=== PATIENT | female | born 1975 | race Two or more races ===

== ENCOUNTER 2020-09-21 06:37 | Inpatient (IN) | payer MEDICAID, OTHER ==
[~2020-09-21] VITALS: Ht 157.5 cm; Wt 80.0 kg
[~2020-09-21 06:37] MED LIST: ASPI300S4 PO; GLIP10TA9 PO; LEV50T PO; LOSA-39 PO; METF-370 PO; NIAC250C16 PO; PRAV20TA3 PO; VERA1TAB24 PO
[2020-09-21] MEDS ORDERED: amLODIPine BESYLATE 5 MG TAB PO ONE (07:00)
[2020-09-21 07:17] LABS: Basophils # (auto) 0.1 10 ^3/uL (0-0.2); Basophils % (auto) 1.5 % (0.0-2.0); Eosinophils # (auto) 0.2 10 ^3/uL (0-0.8); Hematocrit 45.4 % (36.0-46.0); Hemoglobin 15.8 g/dL (12.2-16.2); Lymphocytes # (auto) 2.4 10 ^3/uL (0.4-5.4); Lymphocytes % (auto) 43.1 % (10.0-50.0); Mean Corpuscular Hemoglobin 29.6 pg (28.0-32.0); Mean Corpuscular Hgb Conc. 34.7 g/dL (32.0-36.0); Mean Corpuscular Volume 85.3 fL (80.0-100.0); Monocytes # (auto) 0.3 10 ^3/uL (0-1.3); Monocytes % (auto) 6.1 % (0.0-12.0); Neutrophils # (auto) 2.5 10 ^3/uL (1.6-8.6); Neutrophils % (auto) 45.3 % (37.0-80.0); Nucleated Red Blood Cells % 0.2 %; Red Blood Cells 5.32 10^6/uL (4.0-5.20); Red Cell Distribution Width 13.5 % (11.8-14.3); White Blood Cell 5.6 10^3/uL (4.4-10.8)
[2020-09-21 07:33] LABS: BUN/Creatinine Ratio 28.8; Potassium 3.5 mmol/L (3.5-5.1)
[2020-09-21 07:34] LABS: INR 0.99 (0.9-1.15); Partial Thromboplastin Time 27.5 sec (23.0-31.2)
[2020-09-21 07:38] LABS: Bilirubin, Total 0.5 mg/dL (0.2-1.0); Total Protein 7.3 g/dL (6.4-8.2)
[2020-09-21 07:59] LABS: Urine Bacteria NONE SEEN /hpf (None Seen); Urine Blood Negative /uL (Negative); Urine WBC 1 /hpf (0 - 5)
[2020-09-21] MEDS ORDERED: NITROGLYCERIN 0.4 MG SL TAB SL PRN (08:45)
[2020-09-21] MEDS ORDERED: MORPHINE SULFATE INJECTION 2 MG/ML SYRG IV PRN ×2 (08:45)
[2020-09-21] MEDS ORDERED: DEXTROSE (50%) 50ML SYRG IV PRN (08:45)
[2020-09-21] MEDS ORDERED: PROMETHAZINE HCL 25 MG/ML 1ML IV PRN (08:45)
[2020-09-21] MEDS ORDERED: LACTULOSE 20Gm/30ML SOLN PO PRN (08:45)
[2020-09-21] MEDS ORDERED: ACETAMINOPHEN 500 MG TAB PO PRN (08:45)
[2020-09-21] MEDS: NITROGLYCERIN 0.2MG/HR TOPICAL PATCH TD SCH (09:33)
[2020-09-21] MEDS: ENOXAPARIN SOD 80 MG/0.8ML SYRINGE SC SCH ×2 (09:33→21:59)
[2020-09-21] MEDS: ASPirin 81 mg TAB PO SCH (09:34)
[2020-09-21] MEDS: SODIUM CHLORIDE 0.9% 1,000 ML IV SCH ×2 (09:34→23:14)
[2020-09-21] MEDS: InsuLIN REG 1unit/0.01ml Soln (100units/ml) SC SCH ×3 (11:30→21:52)
[2020-09-21] MEDS: ACCU-CHEK COMFORT CURVE STRIP VI SCH ×3 (11:47→21:52)
[2020-09-21] MEDS: ATORVASTATIN 20 MG TAB PO SCH (21:59)
[2020-09-21] MEDS: traMADol HCL 50 MG TAB PO PRN (23:17)
[2020-09-22 03:50] LABS: Basophils # (auto) 0 10 ^3/uL (0-0.2); Basophils % (auto) 0.9 % (0.0-2.0); Eosinophils # (auto) 0.2 10 ^3/uL (0-0.8); Hemoglobin 14.2 g/dL (12.2-16.2); Lymphocytes # (auto) 2.2 10 ^3/uL (0.4-5.4); Lymphocytes % (auto) 40.2 % (10.0-50.0); Mean Corpuscular Hemoglobin 29.2 pg (28.0-32.0); Mean Corpuscular Hgb Conc. 33.8 g/dL (32.0-36.0); Mean Corpuscular Volume 86.3 fL (80.0-100.0); Monocytes # (auto) 0.3 10 ^3/uL (0-1.3); Neutrophils # (auto) 2.7 10 ^3/uL (1.6-8.6); Neutrophils % (auto) 48.9 % (37.0-80.0); Nucleated Red Blood Cells % 0.1 %; Red Blood Cells 4.86 10^6/uL (4.0-5.20); Red Cell Distribution Width 13.4 % (11.8-14.3); White Blood Cell 5.6 10^3/uL (4.4-10.8)
[2020-09-22 04:06] LABS: Potassium 3.6 mmol/L (3.5-5.1)
[2020-09-22 04:16] LABS: Albumin 3.5 g/dL (3.4-5.0); BUN/Creatinine Ratio 26.8; Bilirubin, Total 0.4 mg/dL (0.2-1.0); Calcium 9.1 mg/dL (8.5-10.1); Total Protein 6.4 g/dL (6.4-8.2)
[2020-09-22] MEDS: ACCU-CHEK COMFORT CURVE STRIP VI SCH ×4 (06:27→23:00)
[2020-09-22] MEDS: InsuLIN REG 1unit/0.01ml Soln (100units/ml) SC SCH ×4 (06:27→23:00)
[2020-09-22] MEDS: ASPirin 81 mg TAB PO SCH (10:20)
[2020-09-22] MEDS: ENOXAPARIN SOD 80 MG/0.8ML SYRINGE SC SCH (10:21)
[2020-09-22] MEDS: NITROGLYCERIN 0.2MG/HR TOPICAL PATCH TD SCH (10:24)
[2020-09-22] MEDS: SODIUM CHLORIDE 0.9% 1,000 ML IV SCH (11:32)
[2020-09-22 12:11] LABS: Alcohol, Urine < 3.0 mg/dL (0-10); Amphetamine Screen, Urine NEGATIVE (NEGATIVE); Barbiturate Scree,Urine NEGATIVE (NEGATIVE); Benzodiazephine Screen, Urine NEGATIVE (NEGATIVE); Cannabinoid Screen, Urine NEGATIVE (NEGATIVE); Cocaine Screen, Urine NEGATIVE (NEGATIVE); Opiate Scree,Urine NEGATIVE (NEGATIVE); Phencyclidine Screen, Urine NEGATIVE (NEGATIVE)
[2020-09-22] MEDS: ATORVASTATIN 20 MG TAB PO SCH (23:00)
[2020-09-22] MEDS: traMADol HCL 50 MG TAB PO PRN (23:01)
[2020-09-23] VITALS (16 sets, daily range): BP systolic 115–182; BP diastolic 75–107
[2020-09-23 05:38] LABS: Basophils # (auto) 0 10 ^3/uL (0-0.2); Basophils % (auto) 0.9 % (0.0-2.0); Eosinophils # (auto) 0.2 10 ^3/uL (0-0.8); Eosinophils % (auto) 3.6 % (0.0-7.0); Hematocrit 40.1 % (36.0-46.0); Hemoglobin 14.1 g/dL (12.2-16.2); Lymphocytes # (auto) 1.9 10 ^3/uL (0.4-5.4); Lymphocytes % (auto) 36.2 % (10.0-50.0); Mean Corpuscular Hemoglobin 30.2 pg (28.0-32.0); Mean Corpuscular Hgb Conc. 35.2 g/dL (32.0-36.0); Mean Corpuscular Volume 85.8 fL (80.0-100.0); Monocytes # (auto) 0.3 10 ^3/uL (0-1.3); Monocytes % (auto) 6.1 % (0.0-12.0); Neutrophils # (auto) 2.8 10 ^3/uL (1.6-8.6); Neutrophils % (auto) 53.2 % (37.0-80.0); Nucleated Red Blood Cells % 0.2 %; Red Blood Cells 4.67 10^6/uL (4.0-5.20); Red Cell Distribution Width 13.3 % (11.8-14.3); White Blood Cell 5.4 10^3/uL (4.4-10.8)
[2020-09-23 05:51] LABS: Potassium 3.7 mmol/L (3.5-5.1)
[2020-09-23 05:59] LABS: BUN/Creatinine Ratio 29.2; Calcium 8.7 mg/dL (8.5-10.1)
[2020-09-23] MEDS: InsuLIN REG 1unit/0.01ml Soln (100units/ml) SC SCH ×4 (06:31→21:32)
[2020-09-23] MEDS: ACCU-CHEK COMFORT CURVE STRIP VI SCH ×4 (06:32→21:32)
[2020-09-23] MEDS ORDERED: TOLT1TAB14 OR (07:20)
[2020-09-23] MEDS ORDERED: HYDR-4902 PO (07:23)
[2020-09-23] MEDS: ENOXAPARIN SOD 40 MG/0.4 ML SYRINGE SC SCH (08:40)
[2020-09-23] MEDS: ASPirin 81 mg TAB PO SCH (08:40)
[2020-09-23] MEDS: NITROGLYCERIN 0.2MG/HR TOPICAL PATCH TD SCH (08:42)
[2020-09-23] MEDS ORDERED: IOHEXOL 300 MG/ML 100ML BOTTLE IJ ONE (17:19)
[2020-09-23] MEDS: traMADol HCL 50 MG TAB PO PRN (21:32)
[2020-09-23] MEDS: ATORVASTATIN 20 MG TAB PO SCH (21:32)
[2020-09-24 05:00] VITALS: BP 142/82
[2020-09-24] MEDS: ACCU-CHEK COMFORT CURVE STRIP VI SCH ×2 (06:17→11:50)
[2020-09-24] MEDS: InsuLIN REG 1unit/0.01ml Soln (100units/ml) SC SCH ×2 (06:17→11:30)
[2020-09-24 09:00] VITALS: BP 138/95
[2020-09-24] MEDS: ENOXAPARIN SOD 40 MG/0.4 ML SYRINGE SC SCH (10:05)
[2020-09-24] MEDS: NITROGLYCERIN 0.2MG/HR TOPICAL PATCH TD SCH (10:07)
[2020-09-24] MEDS: ASPirin 81 mg TAB PO SCH (10:08)
[2020-09-24] MEDS ORDERED: LOSARTAN POTASSIUM 25 MG TAB PO ONE (11:00)
[2020-09-24 12:59] VITALS: BP 138/95
== END 2020-09-24 13:38 | disposition home or self-care (01) | DRG 199 ==
LOC: ER 06:37 → TELE 06:38 → DOU IN ICU 09-23 01:09 → TELE-CENTR 09-23 15:21
PROVIDERS: ADMIT Internal Medicine; ATTEND Internal Medicine Pulmonary Disease
DX: I16.1 Hypertensive emergency (principal); E66.01 Morbid (severe) obesity due to excess calories; I42.2 Other hypertrophic cardiomyopathy; Z20.822 Contact with and (suspected) exposure to COVID-19; R00.1 Bradycardia, unspecified; E11.9 Type 2 diabetes mellitus without complications; G47.30 Sleep apnea, unspecified; E03.9 Hypothyroidism, unspecified; H93.19 Tinnitus, unspecified ear; E78.5 Hyperlipidemia, unspecified; I25.10 Atherosclerotic heart disease of native coronary artery without angina pectoris; I10 Essential (primary) hypertension; F32.9 Major depressive disorder, single episode, unspecified; F41.9 Anxiety disorder, unspecified; Z68.32 Body mass index [BMI] 32.0-32.9, adult; Z82.49 Family history of ischemic heart disease and other diseases of the circulatory system; Z83.3 Family history of diabetes mellitus; Z85.42 Personal history of malignant neoplasm of other parts of uterus; Z90.710 Acquired absence of both cervix and uterus; Z98.84 Bariatric surgery status; Z23 Encounter for immunization
CPT/HCPCS: 36415; 70450; 70470; 71045; 80048; 80053; 80061; 80307; 81001; 82550; 82962; 83036; 83880; 84443; 84484; 85025; 85379; 85610; 85652; 85730; 86141; 87081; 87426; 93005; 93306; 93886; 99291; G0378; J1815

== ENCOUNTER 2022-09-03 10:00 | Emergency (ER) | payer MEDICAID ==
[~2022-09-03] VITALS: Ht 154.9 cm; Wt 89.0 kg
[~2022-09-03 10:00] MED LIST changes: -ASPI300S4 PO; -GLIP10TA9 PO; +HYDR-4902 PO; -LEV50T PO; -METF-370 PO; -NIAC250C16 PO; -PRAV20TA3 PO; -VERA1TAB24 PO
[2022-09-03 10:23] VITALS: BP 124/85
[2022-09-03] MEDS ORDERED: ACETAMINOPHEN 500 MG TAB PO ONE (12:15)
[2022-09-03] MEDS ORDERED: HYDR-4902 PO (13:23)
== END 2022-09-03 13:24 | disposition home or self-care (01) ==
LOC: ER 10:00
DX: S92.331A Displaced fracture of third metatarsal bone, right foot, initial encounter for closed fracture (principal); S92.341A Displaced fracture of fourth metatarsal bone, right foot, initial encounter for closed fracture; S93.602A Unspecified sprain of left foot, initial encounter; I10 Essential (primary) hypertension; I25.10 Atherosclerotic heart disease of native coronary artery without angina pectoris; E11.9 Type 2 diabetes mellitus without complications; E78.5 Hyperlipidemia, unspecified; E03.9 Hypothyroidism, unspecified; Z90.710 Acquired absence of both cervix and uterus; Z79.899 Other long term (current) drug therapy; W10.9XXA Fall (on) (from) unspecified stairs and steps, initial encounter; Y93.89 Activity, other specified; Y92.89 Other specified places as the place of occurrence of the external cause; Y99.8 Other external cause status
CPT/HCPCS: 29515; 73630

== ENCOUNTER 2023-08-28 11:29 | Inpatient (IN) | payer MEDICAID ==
[~2023-08-28] VITALS: Ht 157.5 cm; Wt 86.3 kg
[~2023-08-28 11:29] MED LIST changes: -LOSA-39 PO; +LOSA100T58 PO
[2023-08-28 12:01] LABS: Basophils # (auto) 0.1 10 ^3/uL (0-0.2); Basophils % (auto) 0.8 % (0.0-2.0); Eosinophils # (auto) 0.1 10 ^3/uL (0-0.8); Eosinophils % (auto) 1.4 % (0.0-7.0); Hematocrit 43.8 % (36.0-46.0); Hemoglobin 14.6 g/dL (12.2-16.2); Lymphocytes % (auto) 20.1 % (10.0-50.0); Mean Corpuscular Hemoglobin 28.9 pg (28.0-32.0); Mean Corpuscular Hgb Conc. 33.3 g/dL (32.0-36.0); Monocytes # (auto) 0.6 10 ^3/uL (0-1.3); Monocytes % (auto) 6.4 % (0.0-12.0); Neutrophils # (auto) 7.1 10 ^3/uL (1.6-8.6); Neutrophils % (auto) 71.3 % (37.0-80.0); Nucleated Red Blood Cells % 0.2 %; Red Blood Cells 5.04 10^6/uL (4.0-5.20); Red Cell Distribution Width 13.8 % (11.8-14.3)
[2023-08-28 12:16] LABS: INR 0.95 (0.9-1.15); Partial Thromboplastin Time 30.4 SEC (24.5-34.5)
[2023-08-28 12:23] VITALS: PULSE 177; RESP 20; O2SAT 97
[2023-08-28 12:23] LABS: Alanine Aminotransferase 17 U/L (7-40); Albumin 4.3 g/dL (3.2-4.8); Alkaline Phosphatase 108 U/L (46-116); Anion Gap 6 (5-15); Aspartate Aminotransferase 14 U/L (13-40); BUN/Creatinine Ratio 15.8 (10.0-20.0); Bilirubin, Total 0.4 mg/dL (0.2-1.0); Blood Urea Nitrogen 12 mg/dL (9-23); Calcium 9.1 mg/dL (8.7-10.4); Carbon Dioxide 28 mmol/L (20-30); Chloride 105 mmol/L (98-107); Glucose 139 mg/dL (74-106); Magnesium 1.8 mg/dL (1.6-2.6); Potassium 4.2 mmol/L (3.5-5.1); Sodium 139 mmol/L (136-145); Total Protein 6.5 g/dL (5.7-8.2)
[2023-08-28] MEDS: SODIUM CHLORIDE 0.9% 500 ML IV ONE (12:31)
[2023-08-28] MEDS: dilTIAZem 25 MG/5 ML VIAL IV ONE ×2 (12:31→12:38)
[2023-08-28] MEDS: ASPirin 325 MG TAB PO ONE (12:33)
[2023-08-28] MEDS ORDERED: ACETAMINOPHEN 325 MG TAB PO PRN (13:30)
[2023-08-28] MEDS ORDERED: MORPHINE SULFATE INJ 2 MG/ml SYRG IV PRN (13:30)
[2023-08-28] MEDS ORDERED: NITROGLYCERIN 0.4 MG SL TAB SL PRN (13:30)
[2023-08-28] MEDS: dilTIAZem 125mg/125ml BAG KIT 125 ML IV ONE (13:34)
[2023-08-28] MEDS ORDERED: dilTIAZem 125mg/125ml BAG KIT 125 ML IV SCH (13:45)
[2023-08-28] MEDS: AMIODARONE BOLUS KIT 100 ML IV ONE (14:30)
[2023-08-28 14:38] LABS: Triglycerides 296 mg/dL (< 150)
[2023-08-28 14:39] LABS: LDL Cholesterol 85 mg/dL (< 100)
[2023-08-28 14:40] LABS: Cholesterol 163 mg/dL (< 200); HDL Cholesterol 47 mg/dL (40-59)
[2023-08-28] MEDS: AMIODARONE 450mg/250ml AE 250 ML IV SCH (15:11)
[2023-08-28] MEDS: AMIODARONE HCL 200 MG TAB PO ONE (17:03)
[2023-08-28] MEDS: SODIUM CHLORIDE 0.9% 1,000 ML IV ONE (17:10)
[2023-08-28] MEDS: ENOXAPARIN SOD 100 MG/1 ML SYRINGE SC ONE (17:10)
[2023-08-28] MEDS: SODIUM CHLORIDE 0.9% 1,000 ML IV SCH (18:26)
[2023-08-28] MEDS ORDERED: OMEP1CAP70 PO (18:54)
[2023-08-28] MEDS ORDERED: AMLO1TAB22 PO (18:54)
[2023-08-28] MEDS ORDERED: AMIODARONE 450mg/250ml AE 250 ML IV SCH (20:45)
[2023-08-28] MEDS: HYDROcodone-ACET 5/325MG TAB PO PRN (20:47)
[2023-08-28] MEDS: ATORVASTATIN 20 MG TAB PO SCH (21:39)
[2023-08-28] MEDS: METOPROLOL TARTRATE 25 MG TAB PO SCH (21:42)
[2023-08-28 22:00] VITALS: BP 146/72; PULSE 59; RESP 14; TEMP 98; O2SAT 96
[2023-08-29] VITALS (12 sets, daily range): BP systolic 105–155; BP diastolic 72–102; PULSE 48–68; RESP 11–20; TEMP 97.8–98.9; O2SAT 91–97
[2023-08-29 06:01] LABS: Basophils # (auto) 0 10 ^3/uL (0-0.2); Basophils % (auto) 0.6 % (0.0-2.0); Eosinophils # (auto) 0.2 10 ^3/uL (0-0.8); Eosinophils % (auto) 2.9 % (0.0-7.0); Hematocrit 39.4 % (36.0-46.0); Hemoglobin 13.2 g/dL (12.2-16.2); Lymphocytes % (auto) 32.3 % (10.0-50.0); Mean Corpuscular Hgb Conc. 33.4 g/dL (32.0-36.0); Mean Corpuscular Volume 86.9 fL (80.0-100.0); Monocytes # (auto) 0.4 10 ^3/uL (0-1.3); Monocytes % (auto) 6.7 % (0.0-12.0); Neutrophils # (auto) 3.5 10 ^3/uL (1.6-8.6); Neutrophils % (auto) 57.5 % (37.0-80.0); Nucleated Red Blood Cells % 0.1 %; Red Blood Cells 4.54 10^6/uL (4.0-5.20); Red Cell Distribution Width 13.6 % (11.8-14.3); White Blood Cell 6.2 10^3/uL (4.4-10.8)
[2023-08-29 06:25] LABS: Alanine Aminotransferase 11 U/L (7-40); Alkaline Phosphatase 94 U/L (46-116); Anion Gap 8 (5-15); Aspartate Aminotransferase 19 U/L (13-40); BUN/Creatinine Ratio 10.4 (10.0-20.0); Bilirubin, Total 0.6 mg/dL (0.2-1.0); Blood Urea Nitrogen 8 mg/dL (9-23); Calcium 9.7 mg/dL (8.5-10.1); Carbon Dioxide 26 mmol/L (20-30); Chloride 106 mmol/L (98-107); Glucose 98 mg/dL (74-106); Potassium 3.9 mmol/L (3.5-5.1); Sodium 140 mmol/L (136-145); Total Protein 6.3 g/dL (5.7-8.2)
[2023-08-29] MEDS ORDERED: hydrALAZINE HCL 20 MG/ML VL IV PRN (07:30)
[2023-08-29] MEDS: IODIXANOL 320MG/ML 100ML BTL IV ONE (08:39)
[2023-08-29] MEDS: LIDOCAINE 2%HCL (LOCAL ANESTH.) INJ 20ML MDV ONE (08:40)
[2023-08-29] MEDS: HEPARIN SODIUM (PORCINE) 5000 UNITS/ML 1ML VIAL ONE (08:50)
[2023-08-29] MEDS: VERAPAMIL 2.5MG/ML INJ 2ML VIAL IV ONE (08:50)
[2023-08-29] MEDS: ANGIOMAX 250 MG VIAL IV ONE (08:50)
[2023-08-29] MEDS: fentaNYL CITRATE 100 MCG/2 ML VL ONE (08:50)
[2023-08-29] MEDS: MIDAZOLAM HCL 2MG/2ML 2ml VIAL (1mg/ml) ONE (08:51)
[2023-08-29] MEDS: SODIUM CHL 0.9% 50 ML ONE (08:51)
[2023-08-29] MEDS ORDERED: ENOXAPARIN SOD 40 MG/0.4 ML SYRINGE SC SCH (10:00)
[2023-08-29] MEDS ORDERED: LOSARTAN POTASSIUM 50 MG TAB PO SCH (10:00)
[2023-08-29] MEDS: LOSARTAN POTASSIUM 50 MG TAB PO SCH (11:07)
[2023-08-29] MEDS: ENOXAPARIN SOD 100 MG/1 ML SYRINGE SC SCH (11:07)
[2023-08-29] MEDS: AMIODARONE HCL 200 MG TAB PO SCH (11:07)
[2023-08-29] MEDS: ASPirin 81 mg TAB PO SCH (11:07)
[2023-08-30 05:00] VITALS: BP 108/78; PULSE 46; RESP 18; TEMP 98; O2SAT 95
[2023-08-30 08:00] VITALS: BP 135/84; PULSE 49; PULSE 50; RESP 16; TEMP 98.7; O2SAT 94
[2023-08-30 09:00] VITALS: BP 135/84; PULSE 50; RESP 16; TEMP 98.7; O2SAT 94
[2023-08-30] MEDS: APIXABAN 5 MG TAB PO SCH (10:17)
[2023-08-30] MEDS ORDERED: APIX5TAB PO (10:39)
[2023-08-30] MEDS ORDERED: ATOR40TA52 PO (10:39)
[2023-08-30] MEDS ORDERED: LOSA50TA46 PO (10:39)
[2023-08-30 13:00] VITALS: BP 155/77; PULSE 53; RESP 18; TEMP 97.6; O2SAT 98
[2023-08-30 13:39] VITALS: BP 155/77; PULSE 53; RESP 18; TEMP 97.6; O2SAT 98
== END 2023-08-30 14:40 | disposition home or self-care (01) | DRG 192 ==
LOC: EDBD 11:29 → ER 11:29 → TELE 13:32 → TELE-EAST 13:32
PROVIDERS: ADMIT Nurse Practitioner Family; ATTEND Internal Medicine
PROC: 4A023N7 Measurement of Cardiac Sampling and Pressure, Left Heart, Percutaneous Approach (ICD-10-PCS; principal; 2023-08-29)
PROC: B211YZZ Fluoroscopy of Multiple Coronary Arteries using Other Contrast (ICD-10-PCS; 2023-08-29)
PROC: B215YZZ Fluoroscopy of Left Heart using Other Contrast (ICD-10-PCS; 2023-08-29)
DX: I48.20 Chronic atrial fibrillation, unspecified (principal); I21.A1 Myocardial infarction type 2; I50.31 Acute diastolic (congestive) heart failure; I42.2 Other hypertrophic cardiomyopathy; I11.0 Hypertensive heart disease with heart failure; I25.119 Atherosclerotic heart disease of native coronary artery with unspecified angina pectoris; E11.9 Type 2 diabetes mellitus without complications; E66.01 Morbid (severe) obesity due to excess calories; E78.5 Hyperlipidemia, unspecified; G47.33 Obstructive sleep apnea (adult) (pediatric); G89.29 Other chronic pain; F32.A Depression, unspecified; T46.5X6A Underdosing of other antihypertensive drugs, initial encounter; Y92.098 Other place in other non-institutional residence as the place of occurrence of the external cause; Z90.710 Acquired absence of both cervix and uterus; Z68.34 Body mass index [BMI] 34.0-34.9, adult; Z71.3 Dietary counseling and surveillance; Z98.84 Bariatric surgery status; Z85.42 Personal history of malignant neoplasm of other parts of uterus; Z83.3 Family history of diabetes mellitus; Z82.49 Family history of ischemic heart disease and other diseases of the circulatory system
CPT/HCPCS: 36415; 71045; 80053; 80061; 83735; 83880; 84443; 84484; 85025; 85610; 85730; 93005; 93306; 93458; 99152; G0378; J2250; Q9967